=== PATIENT | male | born 1985 | race Asian ===

== ENCOUNTER 2019-03-23 14:44 | Emergency (ER) | payer OTHER, SELFPAY ==
--- NOTE | 2019-03-23 17:12 | RAD REPORT ---
EXAM DESCRIPTION: RAD - Femur Right - 03/23/2019 5:05 pm CLINICAL HISTORY: fall;Pain Trauma, fall COMPARISON: <Comparisons> FINDINGS: No acute fracture seen.
--- NOTE | 2019-03-23 17:12 | RAD REPORT ---
EXAM DESCRIPTION: RAD - Pelvis - 03/23/2019 5:05 pm CLINICAL HISTORY: fall Trauma, fall COMPARISON: <Comparisons> FINDINGS: No fracture, dislocation or radiographic evidence of AVN. IMPRESSION: Negative study.
[2019-03-23] MEDS ORDERED: IBUPROFEN 400 MG TAB ONE (17:34)
--- NOTE | 2019-03-23 18:01 | ER ---
Nurse's Notes [facility] Name: Dimitri Gomez Age: 34 yrs Sex: Male : 1985 Arrival Date: 03/23/2019 Time: 14:45 Bed 18 Private MD: Diagnosis: Pain in right leg-upper leg from fall Presentation: 03/23 15:14 Presenting complaint: Patient states: "earlier this morning I slipped and fell onto my aa5 back". Pt c/o right thigh pain radiating to right hip. Transition of care: patient was not received from another setting of care. Onset of symptoms was March 23, 2019. Risk Assessment: Do you want to hurt yourself or someone else? Patient reports no desire to harm self or others. Initial Sepsis Screen: Does the patient meet any 2 criteria?. Care prior to arrival: None. 15:14 Method Of Arrival: Ambulatory aa5 15:14 Acuity: KELECHI 4 aa5 18:37 Initial Sepsis Screen: Does the patient have a suspected source of infection? No. ae4 Patient's initial sepsis screen is negative. Historical: - Allergies: 15:16 No Known Allergies; aa5 - Home Meds: 15:16 None [Active]; aa5 - PMHx: 15:16 Hypertension; aa5 - PSHx: 15:16 None; aa5 - Immunization history:: Adult Immunizations up to date. - Social history:: Smoking status: Patient/guardian denies using tobacco. - Ebola Screening: : No symptoms or risks identified at this time. Screenin:38 Abuse screen: Denies threats or abuse. Nutritional screening: No deficits noted. ae4 Tuberculosis screening: No symptoms or risk factors identified. Fall Risk Fall in past 12 months (25 points). No secondary diagnosis (0 pts). No IV (0 pts). Ambulatory Aid- None/Bed Rest/Nurse Assist (0 pts). Gait- Normal/Bed Rest/Wheelchair (0 pts) Mental Status- Oriented to own ability (0 pts). Assessment: 16:40 General: Appears in no apparent distress. uncomfortable, obese, Behavior is calm, ae4 cooperative. Pain: Complains of pain in lateral aspect of right thigh, right hamstring, medial aspect of right thigh and right quadriceps. Neuro: Level of Consciousness is awake, alert, obeys commands, Oriented to person, place, time, situation, Appropriate for age. Cardiovascular: Patient's skin is warm and dry. Respiratory: Airway is patent Respiratory effort is even, unlabored, Respiratory pattern is regular, symmetrical. GI: No signs and/or symptoms were reported involving the gastrointestinal system. Abdomen is round obese. : No signs and/or symptoms were reported regarding the genitourinary system. EENT: No signs and/or symptoms were reported regarding the EENT system. Derm: Skin is normal. Musculoskeletal: No visible swelling or deformity to right thigh ot right hip area. 18:00 Reassessment: Patient appears in no apparent distress at this time. No changes from ae4 previously documented assessment. Vital Signs: 15:16 BP 147 / 85; Pulse 115; Resp 18 S; Temp 99.0(TE); Pulse Ox 98% on R/A; Weight 136.53 kg aa5 (M); Height 5 ft. 8 in. (172.72 cm) (R); Pain 5/10; 17:59 BP 144 / 79; Pulse 97; Resp 18; Pulse Ox 98% on R/A; ae4 15:16 Body Mass Index 45.77 (136.53 kg, 172.72 cm) aa5 ED Course: 14:45 Patient arrived in ED. as 15:14 Arm band placed on. aa5 15:15 Triage completed. aa5 16:25 Saeid Prasad, RN is Primary Nurse. ae4 16:32 Dino Abdalla PA is PHCP. cp 16:32 Dino Nieves MD is Attending Physician. cp 16:40 Bed in low position. Call light in reach. Side rails up X 1. Adult w/ patient. Pulse ox ae4 on. 17:06 XRAY Pelvis In Process Unspecified. EDMS 17:06 XRAY Femur RIGHT In Process Unspecified. EDMS 18:38 No provider procedures requiring assistance completed. Patient did not have IV access ae4 during this emergency room visit. Administered Medications: 17:22 Drug: Ibuprofen 800 mg Route: PO; ae4 18:37 Follow up: Response: Pain is decreased ae4 Outcome: 17:59 Discharge ordered by . cp 18:38 Discharged to home ambulatory, with family. ae4 18:38 Condition: stable 18:38 Discharge instructions given to patient, Instructed on discharge instructions, Demonstrated understanding of instructions, Prescriptions given X 1. 18:39 Patient left the ED. ae4 Signatures: Dispatcher [employer] EDMS Amarilis Wayne Audri, RN RN aa5 Dino Abdalla PA PA cp Elliott, Andrea, RN RN ae4 Corrections: (The following items were deleted from the chart) 15:18 15:14 Acuity: KELECHI 3 aa5 aa5
--- NOTE | 2019-03-23 18:01 | EDPHYS ---
Physician Documentation [facility] Name: Dimitri Gomez Age: 34 yrs Sex: Male : 1985 Arrival Date: 03/23/2019 Time: 14:45 Bed 18 Private MD: ED Physician Dino Nieves HPI: 03/23 16:39 This 34 yrs old Male presents to ER via Ambulatory with complaints of Thigh Pain. cp 16:40 The patient presents with an injury, pain, that is acute, tenderness. The complaints cp affect the lateral aspect of right thigh and right quadriceps. Context: slip and fall while bending to move pallet at work this morning. 16:40 Associated signs and symptoms: Pertinent negatives numbness, weakness, low back pain. cp Treatment prior to arrival includes: no previous treatment. Severity of symptoms: in the emergency department the symptoms are unchanged. Historical: - Allergies: 15:16 No Known Allergies; aa5 - Home Meds: 15:16 None [Active]; aa5 - PMHx: 15:16 Hypertension; aa5 - PSHx: 15:16 None; aa5 - Immunization history:: Adult Immunizations up to date. - Social history:: Smoking status: Patient/guardian denies using tobacco. - Ebola Screening: : No symptoms or risks identified at this time. ROS: 16:45 Constitutional: Negative for body aches, chills, fever, poor PO intake. cp 16:45 Eyes: Negative for injury, pain, redness, and discharge. cp 16:45 ENT: Negative for drainage from ear(s), ear pain, sore throat, difficulty swallowing, difficulty handling secretions. 16:45 Cardiovascular: Negative for chest pain, edema, palpitations. 16:45 Respiratory: Negative for cough, shortness of breath, wheezing. 16:45 Abdomen/GI: Negative for abdominal pain, nausea, vomiting, and diarrhea. 16:45 Back: Negative for pain at rest, pain with movement, radiated pain. 16:45 MS/extremity: Positive for pain, tenderness, of the medial aspect of right thigh and lateral aspect of right thigh, Negative for decreased range of motion, deformity, paresthesias. 16:45 Skin: Negative for rash. 16:45 Neuro: Negative for altered mental status, headache, loss of consciousness, syncope, weakness. 16:45 All other systems are negative. Exam: 16:55 Head/Face: Normocephalic, atraumatic. cp 16:55 Constitutional: The patient appears in no acute distress, alert, awake, non-toxic, well developed, well nourished, obese. 16:55 Eyes: Periorbital structures: appear normal, Conjunctiva: normal, no exudate, no cp injection, Lids and lashes: appear normal, bilaterally. 16:55 ENT: External ear(s): are unremarkable, Nose: is normal, Mouth: is normal, Posterior pharynx: Airway: no evidence of obstruction, patent. 16:55 Neck: C-spine: vertebral tenderness, is not appreciated, crepitus, is not appreciated, ROM/movement: is normal, is supple, without pain, no range of motions limitations, no nuchal rigidity. 16:55 Chest/axilla: Inspection: normal. 16:55 Cardiovascular: Rate: normal. 16:55 Respiratory: the patient does not display signs of respiratory distress, Respirations: normal, no use of accessory muscles, no retractions, no splinting, no tachypnea. 16:55 Abdomen/GI: Inspection: abdomen appears normal. 16:55 Back: pain, is absent, ROM is normal. 16:55 Musculoskeletal/extremity: Extremities: grossly normal except: noted in the medial aspect of right thigh and lateral aspect of right thigh: pain, tenderness, There is no evidence of decreased ROM, deformity, Joints: All joints are normal except the right hip displays painful range of motion, tenderness. 16:55 Skin: no rash present. Vital Signs: 15:16 BP 147 / 85; Pulse 115; Resp 18 S; Temp 99.0(TE); Pulse Ox 98% on R/A; Weight 136.53 kg aa5 (M); Height 5 ft. 8 in. (172.72 cm) (R); Pain 5/10; 17:59 BP 144 / 79; Pulse 97; Resp 18; Pulse Ox 98% on R/A; ae4 15:16 Body Mass Index 45.77 (136.53 kg, 172.72 cm) aa5 MDM: 16:36 Patient medically screened. cp 17:58 Data reviewed: vital signs, nurses notes, radiologic studies, plain films. cp 17:58 Test interpretation: by ED physician or midlevel provider: plain radiologic studies. cp Counseling: I had a detailed discussion with the patient and/or guardian regarding: the historical points, exam findings, and any diagnostic results supporting the discharge/admit diagnosis, radiology results. Response to treatment: the patient's symptoms have mildly improved after treatment, and as a result, I will discharge patient. ED course: xrays of pelvis and right femur negative for fracture. 18:00 Differential diagnosis: dislocation, closed fracture, contusion, tendonitis. cp 03/23 16:39 Order name: XRAY Pelvis; Complete Time: 18:12 cp 03/23 18:12 Interpretation: Report reviewed. cp 03/23 16:39 Order name: XRAY Femur RIGHT; Complete Time: 18:12 cp 03/23 18:12 Interpretation: Report reviewed. cp Administered Medications: 17:22 Drug: Ibuprofen 800 mg Route: PO; ae4 18:37 Follow up: Response: Pain is decreased ae4 Disposition: 20:16 Co-signature as Attending Physician, Dino Nieves MD I agree with the assessment and martín plan of care. Disposition: 03/23/19 17:59 Discharged to Home. Impression: Pain in right leg - upper leg from fall. - Condition is Stable. - Discharge Instructions: Musculoskeletal Pain. - Prescriptions for Ibuprofen 800 mg Oral Tablet - take 1 tablet by ORAL route every 8 hours As needed take with food; 30 tablet. - Medication Reconciliation Form, Thank You Letter, Antibiotic Education, Prescription Opioid Use form. - Follow up: Private Physician; When: 2 - 3 days; Reason: Recheck today's complaints. - Problem is new. - Symptoms have improved. Signatures: Dispatcher [employer] EDDino Miles MD MD cha Calderon, Audri, RN RN aa5 Dino Abdalla PA PA cp Elliott, Andrea, RIKKI RN ae4 Corrections: (The following items were deleted from the chart) 18:39 17:59 03/23/2019 17:59 Discharged to Home. Impression: Pain in right leg - upper leg ae4 from fall. Condition is Stable. Forms are Medication Reconciliation Form, Thank You Letter, Antibiotic Education, Prescription Opioid Use. Follow up: Private Physician; When: 2 - 3 days; Reason: Recheck today's complaints. Problem is new. Symptoms have improved. cp
== END 2019-03-23 18:39 | disposition home or self-care (01) ==
LOC: ER 14:44
DX: M79.651 Pain in right thigh (principal); W01.0XXA Fall on same level from slipping, tripping and stumbling without subsequent striking against object, initial encounter; Y93.89 Activity, other specified; Y92.89 Other specified places as the place of occurrence of the external cause; Y99.8 Other external cause status; I10 Essential (primary) hypertension
CPT/HCPCS: 72170; 99284